=== PATIENT | female | born 1955 | race Caucasian/White ===

== ENCOUNTER → 2017-01-06 | Outpatient (CLI) | payer OTHER ==
[~2017-01-06] MED LIST: BYSTOLIC5 MG PO; FLOMAX0.4 M1 PO; HYDROCHLOROTH12.5 M1 PO; LEVAQUIN PO; LIPITOR40 MG PO; LISINOPRIL-HCTZ1 T19 PO; LOW DOSE ASPIRI81 M1 PO; METFORMIN HCL500 M1 PO; METOPROLOL TART25 MG PO; PERCOCET PO; PERCOCET5/325 PO; PHENERGAN PO; XARELTO20 MG PO
--- NOTE | ~2017-01-06 | CT71 ---
[facility] A Service of [facility] & [facility] RADIOLOGY TEXT RESULTS PATIENT: GERBER CLARK LOCATION: [facility] : 57 UNIT #: [id number] AGE: [address]: Calvin Corado MD SEX: F ORDER DR: [id number] [address] [address] [id number] O MR#: [id number] Acc #: [id number] NAME: GERBER CLARK : 1955 SEX: F STUDY DATE/TIME: 01/06/2017 14:08 UNIT: [facility] ROOM: STUDY DESCRIPTION: CT Head Wo Contrast Attending Physician: Calvin Corado M.D. Referring Physician: Calvin Corado M.D. Ordering Physician: Calvin Corado M.D. Primary Care Physician: Calvin Corado M.D. MEDICAL IMAGING REPORT This report is preliminary unless electronic signature is present. EXAM CT of the head without contrast. INDICATION Headache and confusion. This started either December 28 or December 29, patient had a 15 minute long episode of confusion. She reports a headache over her right eye for [address] images were obtained from the vertex of the skull through the skull base. No intravenous contrast was administered. This CT exam was performed with one or more of the following radiation dose reduction techniques: automatic exposure control, adjustment of mA and/or kV according to patient size, and iterative reconstruction. FINDINGS No acute intracranial hemorrhage is identified. Ventricles are normal in size and there is no midline shift or mass effect, patient has a focal area of decreased attenuation seen within the right thalamus which likely reflects an old infarct. There is also some questionable areas of decreased attenuation seen within the desire. I am uncertain if this is a true finding or if this is related to some artifact through this area. Possibility again of old infarct is certainly not excluded. The patient is noted to have mucous retention cysts within the right maxillary sinus and right sphenoid sinus with some additional involvement suspected within the ethmoid sinuses. No aggressive osseous abnormalities are seen. No focal soft tissue abnormalities are identified. IMPRESSION 1. No acute intracranial hemorrhage identified. 2. Low-attenuation area within the right thalamus may reflect an old lacunar infarct. Patient also has potentially 2 areas of decreased STS. [facility] A Service of [facility] & [facility] RADIOLOGY TEXT RESULTS PATIENT: GERBER CLARK [id number] 57 UNIT #: [id number] AGE: [address]: Calvin Corado MD SEX: F ORDER DR: attenuation within the desire, although, these may actually be artifactual in nature. Again, the possibility of old infarct is certainly not excluded. Given symptomatology, I would suggest further evaluation with MRI. Dictated by... Jahaira Contreras M.D. THIS IS AN ELECTRONICALLY VERIFIED REPORT Jahaira Contreras M.D. at 01/10/2017 3:28 PM JOSÉ/simone TD: 01/06/2017 16:48 JOB #: [id number] MEDICAL IMAGING REPORT Page 1 of 1
--- NOTE | ~2017-01-06 | US37 ---
[facility] A Service of [facility] & [facility] RADIOLOGY TEXT RESULTS PATIENT: GERBER CLARK LOCATION: [facility] : 57 UNIT #: [id number] AGE: [address]: Calvin Corado MD SEX: F ORDER DR: [id number] [address] [address] [id number] O MR#: [id number] Acc #: [id number] NAME: GERBER CLARK : 1955 SEX: F STUDY DATE/TIME: 01/06/2017 14:18 UNIT: [facility] ROOM: STUDY DESCRIPTION: US Carotid W/Doppler Bilateral Attending Physician: Calvin Corado M.D. Referring Physician: Calvin Corado M.D. Ordering Physician: Calvin Corado M.D. Primary Care Physician: Calvin Corado M.D. MEDICAL IMAGING REPORT This report is preliminary unless electronic signature is present. EXAM Carotid Doppler bilateral 01/06/2017 HISTORY Acute onset of confusion on 12/28/2016, TIA. Patient reportedly could not remember how to get out of the car. Diabetes. Headache. Double vision and blurred vision for 1 week. Benign essential hypertension. Left upper extremity weakness. Evaluate for carotid stenosis. FINDINGS Prakash-scale carotid artery images were obtained as well as Doppler waveform, spectral analysis and color flow Doppler imaging. Examination was interpreted according to NASCET criteria. There is elevated peak systolic velocity in the midportion of the right internal carotid artery 147 cm/sec characteristic of approximate 50% to 69% diameter reduction. Peak velocity in the right common and external carotid arteries was 56 cm/sec and 97 cm/sec respectively. There is elevated peak systolic velocity in the midportion of the left internal carotid artery of 132 cm/sec characteristic of approximate 50% to 69% diameter reduction. Peak velocity in the left common and external carotid arteries was 70 cm/sec and 107 cm/sec respectively. Antegrade blood flow is seen both vertebral arteries. There is mild calcified plaque bilaterally. IMPRESSION 1. Approximate 50% to 69% diameter reduction involving the mid portion of the right internal carotid artery. 2. Approximate 50% to 69% diameter reduction involving the mid portion of the left internal carotid artery. 3. Antegrade blood flow in both vertebral arteries. STAT * RESULT [facility] A Service of [facility] & [facility] RADIOLOGY TEXT RESULTS PATIENT: GERBER CLARK LOCATION: [facility] : 57 UNIT #: [id number] AGE: [address]: Calvin Corado MD SEX: F ORDER DR: Dictated by... Gerald Landa M.D. THIS IS AN ELECTRONICALLY VERIFIED REPORT Gerald Landa M.D. at 01/06/2017 5:13 PM ALFRED/baldemar TD: 01/06/2017 16:58 JOB #: [id number] MEDICAL IMAGING REPORT Page 1 of 1
== END | disposition home or self-care (01) ==
LOC: SCT 13:44
DX: G45.9 Transient cerebral ischemic attack, unspecified (principal)
CPT/HCPCS: 70450; 93880

== ENCOUNTER 2017-01-15 17:13 | Emergency (ER) | payer OTHER ==
--- NOTE | ~2017-01-15 | CT71 ---
[facility] A Service of [facility] RADIOLOGY TEXT RESULTS PATIENT: GERBER CLARK LOCATION: [facility] : 57 UNIT #: [id number] AGE: [address]: Ac Faulkner MD SEX: F ORDER DR: [id number] [place] [id number] E MR#: [id number] Acc #: [id number] NAME: GERBER CLARK : 1955 SEX: F STUDY DATE/TIME: 01/15/2017 18:02 UNIT: [facility] ROOM: STUDY DESCRIPTION: CT Head Wo Contrast Attending Physician: Ac Faulkner M.D. Ordering Physician: Ac Faulkner M.D. Primary Care Physician: Calvin Corado M.D. MEDICAL IMAGING REPORT This report is preliminary unless electronic signature is present. EXAM CT head without contrast, 01/15/2017 HISTORY 61-year-old female with altered mental status, slurred speech, and confusion beginning today at 12:30 and lasting for [address] head 01/06/2017 TECHNIQUE Routine unenhanced axial images performed through the brain. This CT exam was performed with one or more of the following radiation dose reduction techniques: automatic exposure control, adjustment of mA and/or kV according to patient size, and iterative reconstruction. FINDINGS No hemorrhage, acute infarction, mass lesion, or abnormal extraaxial fluid collection. No midline shift or focal mass effect. Ventricular system is normal in size and configuration. No acute bony abnormality. Mucous retention cysts in the bilateral sphenoid sinuses. Mild mucosal thickening bilateral ethmoid air cells. Visualized mastoid air cells are clear. Small mucous retention cysts in the bilateral maxillary sinuses. IMPRESSION 1. No acute intracranial abnormality. 2. Mucous retention cysts in the bilateral maxillary sinuses and bilateral sphenoid sinuses. Mucosal thickening bilateral ethmoid air cells. [facility] A Service of [facility] RADIOLOGY TEXT RESULTS PATIENT: GERBER CLARK LOCATION: [facility] : 57 UNIT #: [id number] AGE: [address]: Ac Faulkner MD SEX: F ORDER DR: Dictated by... Higinio Morse M.D. THIS IS AN ELECTRONICALLY VERIFIED REPORT Higinio Mores M.D. at 01/16/2017 6:12 PM KALEE/hadley TD: 01/15/2017 21:32 JOB #: [id number] MEDICAL IMAGING REPORT Page 1 of 1
--- NOTE | ~2017-01-15 | CT23 ---
[facility] A Service of [facility] & [facility] RADIOLOGY TEXT RESULTS PATIENT: GERBER CLARK LOCATION: [facility] : 57 UNIT #: [id number] AGE: [address]: Ac Faulkner MD SEX: F ORDER DR: [id number] [place] [address] [id number] E MR#: [id number] Acc #: [id number] NAME: GERBER CLARK : 1955 SEX: F STUDY DATE/TIME: 01/15/2017 18:07 UNIT: [facility] ROOM: STUDY DESCRIPTION: CT Angio Neck Attending Physician: Ac Faulkner M.D. Ordering Physician: Ac Faulkner M.D. Primary Care Physician: Calvin Corado M.D. MEDICAL IMAGING REPORT This report is preliminary unless electronic signature is present. EXAM CT angiogram of the neck 01/15/2017 Result text under order number ending [id number] angiogram with contrast 01/15/2017. Please see this order for result text. Dictated by... Cordell Da Silva M.D. THIS IS AN ELECTRONICALLY VERIFIED REPORT Cordell Da Silva M.D. at 01/21/2017 5:37 PM SUZI/baldemar TD: 01/17/2017 15:27 JOB #: [id number] MEDICAL IMAGING REPORT Page 1 of 1
--- NOTE | ~2017-01-15 | EKG ---
PATIENT: GERBER CLARK UNIT #: [id number] Ventricular Rate: 106 BPM Atrial Rate: 108 BPM QRS Duration: 154 ms Q-T Interval: 372 ms QTC Calculation(Bezet): 494 ms Calculated R Bishop: -4 degrees Calculated T Bishop: 159 degrees Diagnosis Line: Wide QRS rhythm Diagnosis Line: Left bundle branch block Diagnosis Line: Abnormal ECG Diagnosis Line: When compared with ECG of 27-MAY-2016 10:06, Diagnosis Line: Wide QRS rhythm has replaced Sinus rhythm Diagnosis Line: Vent. rate has increased BY 44 BPM Diagnosis Line: Confirmed by MERI KAUR MD ([id number]) on Diagnosis Line: 01/18/2017 8:36:35 AM INTERPRETING MD: NATASHA ROQUE
--- NOTE | ~2017-01-15 | CT17 ---
[facility] A Service of [facility] RADIOLOGY TEXT RESULTS PATIENT: GERBER CLARK LOCATION: [facility] : 57 UNIT #: [id number] AGE: [address]: Ac Faulkner MD SEX: F ORDER DR: [id number] [place] [id number] E MR#: [id number] Acc #: [id number] NAME: GERBER CLARK : 1955 SEX: F STUDY DATE/TIME: 01/15/2017 18:07 UNIT: SED ROOM: STUDY DESCRIPTION: CT Angio Head Attending Physician: Ac Faulkner M.D. Ordering Physician: Ac Faulkner M.D. Primary Care Physician: Calvin Corado M.D. MEDICAL IMAGING REPORT This report is preliminary unless electronic signature is present. EXAM Head and neck CT angiogram with contrast 01/15/2017 PROCEDURE Axial contrast-enhanced head neck CT angiogram with three-dimensional reformats. This CT exam was performed with one or more of the following radiation dose reduction techniques: automatic exposure control, adjustment of mA and/or kV according to patient size, and iterative reconstruction. COMPARISON STUDIES Comparison head CT 01/15/2017 CLINICAL HISTORY Transient episode approximately 6 hours earlier of slurred speech and confusion, prior episode about 1 month previous. FINDINGS The ascending aorta measures 4.1 cm in maximal dimension. There is a normal arch branching pattern without proximal great vessel stenosis. Both vertebral artery origins are widely patent. There is plaque at the cervical carotid bifurcations bilaterally but both internal carotid arteries remain patent through the upper neck. On the right there is about 40% to 45% ICA stenosis by NASCET criteria. On the left, there is about 55% ICA stenosis by NASCET criteria. Both vertebral arteries are patent throughout the neck and supply the basilar artery. Intracranially, the anterior communicator is clearly patent. The left posterior communicator and right posterior communicator are both patent as well. There is no evidence of intracranial aneurysm or intracranial flow-limiting stenosis and overall arterial runoff is symmetric in the [facility] A Service of [facility] RADIOLOGY TEXT RESULTS PATIENT: GERBER CLARK [place] [facility] [place] 57 UNIT #: [id number] AGE: [address]: Ac Faulkner MD SEX: F ORDER DR: anterior, middle and posterior cerebral distributions. The dural venous sinuses appear normally patent bilaterally, and there is no intracranial mass or abnormal enhancement. The lung apices are normal. There is some minimal paranasal sinus mucosal disease but the skull base and calvarium are otherwise unremarkable. Incidentally noted nonosseous union of the posterior arch of C1 as a normal variant. There is no cervical soft tissue mass or suspicious adenopathy. IMPRESSION 1. Plaque at both cervical carotid bifurcations of about 40% to 45% right 55% left ICA stenosis by NASCET criteria. 2. No intracranial aneurysm or flow-limiting stenosis and the vertebral arteries and remainder of the posterior circulation are normally patent. 3. Incidental note made of dilatation of the ascending aorta to 4.1 cm. 1. Dictated by... Cordell Da Silva M.D. THIS IS AN ELECTRONICALLY VERIFIED REPORT Cordell Da Silva M.D. at 01/21/2017 5:37 PM SUZI/baldemar TD: 01/17/2017 15:25 JOB #: [id number] MEDICAL IMAGING REPORT Page 1 of 1
[~2017-01-15 17:13] MED LIST changes: -HYDROCHLOROTH12.5 M1 PO; -METOPROLOL TART25 MG PO; -XARELTO20 MG PO
[2017-01-15] MEDS ORDERED: METOPROLOL TART25 MG PO (17:40)
[2017-01-15] MEDS ORDERED: XARELTO20 MG PO (17:40)
[2017-01-15] MEDS ORDERED: HYDROCHLOROTH12.5 M1 PO (17:41)
[2017-01-15 17:42] LABS: BASOPHIL# 0.1 X10e3 (0-0.3); BASOPHIL% 0.8 % (0-2.5); EOSINOPHIL# 0.4 X10e3 (0-0.7); EOSINOPHIL% 2.9 % (0.0-7.0); HEMATOCRIT 41.3 % (35.0-45.0); HEMOGLOBIN 13.1 gm/dL (12.0-16.0); LYMPHOCYTE# 5.3 X10e3 (1.0-3.5); LYMPHOCYTE% 36.9 % (17.0-45.0); MEAN CELL VOLUME 79.6 FL (83-96); MEAN CORPUSCULAR HEMOGLOBIN 25.2 PG (28-34); MEAN CORPUSCULAR HGB CONC 31.6 g/dL (30-36); MEAN PLATELET VOLUME 8.1 FL (6.5-11.5); MONOCYTE# 0.8 X10e3 (0-1.0); MONOCYTE% 5.4 % (3.0-12.0); NEUTROPHIL# 7.8 X10e3 (1.5-7.1); PLATELET COUNT 367 X10e3 (140-420); RED BLOOD COUNT 5.19 X10e (3.90-5.30); RED CELL DISTRIBUTION WIDTH 20.9 % (11.0-15.5); WHITE BLOOD COUNT 14.4 X10e3 (4.0-10.5)
[2017-01-15 17:44] LABS: DIFF IND NO
[2017-01-15 17:48] LABS: INR 1.2; PROTHROMBIN TIME (PATIENT) 13.6 SECONDS (9.5-12.4)
[2017-01-15 17:55] LABS: PARTIAL THROMBOPLASTIN TIME 26.5 SECONDS (25.6-38.1)
[2017-01-15 17:57] LABS: ALBUMIN SERUM 4.7 g/dL (3.5-5.0); BILIRUBIN, DIRECT 0.1 mg/dL (0.0-0.2); BILIRUBIN,INDIRECT 0.6 mg/dL (0.0-0.9); BILIRUBIN,TOTAL 0.7 mg/dL (0.2-2.0); BUN/CREATININE RATIO 22.5; CALCIUM SERUM 9.8 mg/dL (8.4-10.2); CREATININE SERUM 0.8 mg/dL (0.6-1.4); GLOM FILT RATE Estimated 80.2 mL/min (>60); POTASSIUM 3.1 mmol/L (3.5-5.1); PROTEIN TOTAL SERUM 8.9 g/dL (6.0-8.3)
[2017-01-15 18:38] LABS: POC - CKMB 3.3 ng/mL (0.0-7.9); POC - TROPONIN <0.05 ng/mL (<=0.05)
== END 2017-01-15 19:12 | disposition home or self-care (01) ==
LOC: SED 17:13
PROVIDERS: Emergency Medicine
DX: G45.9 Transient cerebral ischemic attack, unspecified (principal); E87.6 Hypokalemia; I10 Essential (primary) hypertension; E11.9 Type 2 diabetes mellitus without complications; Z98.51 Tubal ligation status; Z90.49 Acquired absence of other specified parts of digestive tract; Z88.2 Allergy status to sulfonamides; Z79.899 Other long term (current) drug therapy
CPT/HCPCS: 36415; 70450; 70496; 70498; 80048; 80076; 82553; 82947; 84484; 85025; 85610; 85730; 93005; 99285; Q9967